=== PATIENT | male | born 1955 | race Caucasian/White ===

== ENCOUNTER 2017-04-18 02:06 | Observation (INO) | payer OTHER ==
[~2017-04-18] VITALS: Ht 182.9 cm; Wt 117.9 kg
[~2017-04-18 02:06] MED LIST: AMBIEN (MONOGRAP5 MG PO; AMLODIPINE BESY10 M1 PO; BENICAR40 MG PO; CALCIUM 600600 M1 PO; CINNAMON500 MG PO; CIPRO 500MG TA500 MG PO; CLARITIN10 MG PO; CLINDAMYCIN HY300 MG PO; CRANBERRY400 M1 PO; FISH OIL CONC1000 M1 PO; FISH OIL CONCEN1 SGL PO; HYDRODIURIL 2525 MG PO; LEVEMIR FL100 UNIT/1 SC; LEVEMIR100 U/ML SC; LEVOTHROID0.125 MG PO; LEVOTHYROXINE0.1 MG PO; LEVOTHYROXINE137 MCG PO; LORADAMED10 MG PO; LOSARTAN POTAS100 M1 PO; LOSARTAN POTASS25 MG PO; LOVASTATIN40 M1 PO; LOVASTATIN40 MG PO; MAGNESIUM OXID400 MG PO; MULTIVITAMIN1 TAB PO; MULTIVITAMINS1 EAC9 PO; NORVASC 5MG TAB5 MG PO; NOVOLOG FL100 UNIT/1 SC; NOVOLOG MI100 UNIT/1 SC; NOVOLOG100 U/ML SC; OXYCODONE5 MG PO; SAW PALMETTO450 M1 PO; VITAMIN A NA10000 IU PO; VITAMIN B6200 MG PO; VITAMIN C500 M3 PO; [UNRECOGNIZED DRUG - CODE] SC
--- NOTE | 2017-04-18 13:46 | RADIOLOGY REPORT ---
EXAMINATION: XR PORTABLE CHEST CLINICAL INFORMATION: Pacemaker placement COMPARISON: 03/13/2017 chest x-ray TECHNIQUE: Portable frontal view of the chest was obtained. FINDINGS: Hypoventilatory exam. Stable mild enlargement of the cardiac silhouette. The mediastinal silhouette is normal. No pulmonary venous congestion. A right pectoral dual-lead cardiac pacer is in place with leads projecting over the right atrium and right ventricle. The leads seem to be intact. No pneumothorax. No acute pulmonary consolidation. IMPRESSION: Cardiac pacemaker is in place. No acute pulmonary findings.
--- NOTE | 2017-04-18 14:05 | Operative Report ---
Operative/Inv Procedure Report Surgery Date: 04/18/17 Name of Procedure: Implantation of dual-chamber pacemaker, atrial and ventricular leads. Pre-Operative Diagnosis: Complete heart block Post-Operative Diagnosis: Complete heart block Estimated Blood Loss: less than 50ml Surgeon/Animal Nursery Worker: Keron Saini MD, V. Anesthesia: local monitored anesthesi Implants: Medtronic RA lead model # 4574-45, SN [id number] Medtronic RV lead model # 4074-52, SN [id number] Medtronic pacemaker, Advisa, Model # A2DR01, SN [id number] Complications: None Condition: Improved Operative Indication: Complete heart block with severe bradycardia and symptoms. Operative/Procedure Note Note: The patient is a 61-year-old male with diabetes and hypertension who presented a few weeks ago with a heart rate of 40 to his primary care physician. He was referred and workup revealed high degree AV block with periods of 2-1 and complete heart block with heart rates around 40. His echocardiogram did not show any major abnormalities and a Holter monitor documented persistent bradycardia. The patient admitted to fatigue and shortness of breath and was recommended a pacemaker. The patient was brought to the operating suite in the fasting state. He was prepped and draped in the usual manner. Full timeout took place with agreement on the patient identification, planned procedure, personnel and equipment available. 2 g of Kefzol IV were given prophylactically prior to the procedure. Local anesthesia was instilled in the right subclavian area and an incision made in this area parallel to the clavicle crossing the deltopectoral groove. The incision was carried down to the pre-muscular fascia and the deltopectoral groove was identified and dissected. A fair sized cephalic vein was found within the groove and isolated between ties. Next additional local anesthesia was instilled in the inferior part of the incision and an appropriate sized pocket made using sharp and blunt dissection and stuffed with a Kefzol-soaked sponge. Next, the vein was opened and the ventricular lead was passed through the vein into central circulation and manipulated into position in the apex of the right ventricle under fluoroscopic control. This is a passive fixation lead. Threshold measurements included voltage threshold of 0.4 V, current 0.10 mA, impedance 1072 ohms, R-wave 4.8 mV. This was considered satisfactory for an acute implant. Next through the same vein the atrial lead was passed into central circulation and manipulated into a position in the right atrial appendage under fluoroscopic control. This was also a passive fixation lead. Threshold in the atrium was 0.2 V, current 0.3 mA, impedance 603 ohms, P waves 3.8 mV. These were considered satisfactory parameters. Next the leads were sewn into place using nonabsorbable suture material around the sleeve devices on the leads sewn to the pectoralis musculature. An additional suture was placed around the vein proximally to control leakage from the vein. The vein was then tied off and hemostasis was attained. Next the sponge was removed from the pocket and the pacemaker was attached to the leads and appropriate pacing ensued. Next the pacemaker was placed in the pocket and sewn into place using a nonabsorbable suture through the suture hole of the pacemaker. Next the wound was inspected for hemostasis and found to be dry, and the wound was closed in 3 layers of absorbable suture material including a final layer of subcuticular sutures with buried knots. The patient tolerated the procedure well. There were no complications. Sponge, needle and instrument counts were correct at the end of the procedure. Postoperative EKG and chest x-ray documented good electrical and anatomical position and function of the system. The patient was removed to the recovery room awake and alert and pacing well. Discharge Disposition: PACU CC: Meron Ibarra MD
--- NOTE | 2017-04-18 16:20 | RADIOLOGY REPORT ---
EXAMINATION: XR chest INDICATION: PACEMAKER/FLUORO. VERBAL ORDER PER MD BELL. READ BACK DONE COMPARISON: Radiographs from the same date TECHNIQUE: Multiple AP spot images of the chest were submitted as part of the procedure performed by Dr. Vazquez. 462 seconds of fluoroscopy time was provided. FINDINGS/IMPRESSION: Pacemaker unit overlies the right hemithorax. Leads terminate in the region of the right atrium and right ventricular apex.
[2017-04-18 16:49] VITALS: BP 140/70
--- NOTE | 2017-04-18 17:34 | History & Physical ---
Chago SILVERIO,[facility] 04/18/17 1733: General Information and HPI MD Statement: I have seen and personally examined ANNELIESE BEASLEY and documented this H&P. The patient is a 61 year old M who presented with a patient stated chief complaint of [Bradycardia status post pace maker insertion]. Source of Information: patient, old records Exam Limitations: no limitations History of Present Illness: The patient is a 61-year-old male with diabetes, hyperlipidemia, hypothyroidism and hypertension who presented with a four-week history of lightheadedness . His symptoms started with lightheadedness about 4 weeks prior to presentation. He presented with this complaint to his primary care provider and was found to be bradycardic with a heart rate in the 40s. He denied chest pains, but did have occasional palpitations. He admitted to mild shortness of breath on exertion and fatigue but denied syncope. He was referred to club director Dr. Saini and workup revealed high degree AV block with periods of 2-1 and complete heart block with heart rates around 40. His echocardiogram on 2017 showed a normal EF of greater than 65% and no major abnormalities. A Holter monitor documented persistent bradycardia. The patient admitted to fatigue and shortness of breath and was recommended a pacemaker. He had a pacemaker placed this afternoon with no complications and was transferred to the telemetry floor for observation. Patient has been having intermittent cough productive of yellow-green sputum for the past 2 days but denies fevers, chills or malaise. He denies nausea or vomiting abdominal pain or change in bowel habits. He denies dysuria or hematuria. Allergies/Medications Allergies: Coded Allergies: Penicillins ( CHILD 04/13/17) egg (POSITIVE SKIN TEST 04/13/17) Iodinated Contrast- Oral and IV Dye (IODINATED CONTRAST MEDIA - IV DYE) ( Intermediate, VOMITING FROM PO CONTRAST DYE 04/13/17) Home Med list Amlodipine Besylate 10 MG TABLET 1 TAB PO DAILY BP (Reported) Insulin Aspart Protam & Aspart (Novolog Mix 70-30 Vial) 100 UNIT/ML (70-30) VIAL 18 UNITS SC QAM DM (Reported) Insulin Aspart, Recombinant (Novolog Flexpen) (Unknown Strength) INSULN.PEN ( Unknown Dose) SC BIDAC DM (Reported) Insulin Detemir (Levemir Flextouch) 100 UNIT/ML (3 ML) INSULN.PEN 18 UNITS SC QHS DM (Reported) Levothyroxine Sodium 137 MCG TABLET 1 TAB PO DAILY THYROID (Reported) Loratadine (Loradamed) 10 MG TABLET 1 TAB PO DAILY ALLERGIES (Reported) Losartan Potassium 100 MG TABLET 1 TAB PO DAILY BP (Reported) Lovastatin 40 MG TABLET 1 TAB PO DAILY CHOLESTEROL (Reported) with food Multiple Vitamin (Multivitamins) 1 EACH TABLET 1 TAB PO DAILY SUPPLEMENT ( Reported) [place]-3 Fatty Acids (Fish Oil Concentrate) (Unknown Strength) CAPSULE (Unknown Dose) PO QAM SUPPLEMENT (Reported) Saw Orange Fruit (Saw Orange) 450 MG CAPSULE 1 CAP PO BID SUPPLEMENT ( Reported) Observation Initial Note - I have personally examined ANNELIESE BEASLEY on 04/18/17 at 1733. The disposition of ANNELIESE BEASLEY is uncertain at this time and before a determination can be made, he requires a period of observation for the following reasons [lightheadedness and bradycardia STATUS POST PACE MAKER INSERTION] Past History Medical History Blood Transfusion Hx: No Neurological: NONE EENT: NONE Cardiovascular: hypertension, hyperlipidemia Respiratory: ALLERGIES Gastrointestinal: NONE Hepatic: NONE Renal: NONE Musculoskeletal: NONE Psychiatric: NONE Endocrine: diabetes, hypothyroidism Blood Disorders: NONE Cancer(s): TESTICULAR CA WRAPPER SORTER/Reproductive: NONE Isolation History: Standard Tetanus Vaccine: 06/07/11 Surgical History Surgical History: non-contributory Past Family/Social History Family History Relations & Conditions if any FATHER FH: diabetes mellitus FH: emphysema Gout MOTHER FH: diabetes mellitus FHx: sarcoidosis Psychosocial History Where do you live? Home Services at Home: None Smoking Status: Never Smoked Review of Systems Review of Systems Constitutional: Reports: see HPI. Denies: chills, fever, malaise, weakness. Exam & Diagnostic Data Last 24 Hrs of Vital Signs/I&O Vital Signs Date Time Temp Pulse Resp B/P B/P Pulse O2 O2 Flow FiO2 Mean Ox Delivery Rate 04/18 1649 98.0 96 20 140/70 95 Physical Exam General Appearance Alert, Oriented X3, Cooperative, No Acute Distress Skin No Rashes Skin Temp/Moisture Exam: Warm/Dry Sepsis Skin Exam (color): Normal for Ethnicity HEENT Atraumatic, PERRLA, EOMI, Mucous Membr. moist/pink Neck Supple, No JVD, No thryomegaly, +2 Carotid Pulse wo Bruit Lymphatic Cervical nl Cardiovascular Regular Rate, Normal S1, Normal S2, No Murmurs, Gallops, Rubs, Right pacemaker site clean non tender Lungs Clear to Auscultation, Normal Air Movement Abdomen Normal Bowel Sounds, Soft, No Tenderness, No Hepatospenomegaly, No Masses Neurological Normal Speech, Normal Tone, Cranial Nerves 3-12 NL Extremities No Edema Assessment/Plan Assessment: The patient is a 61-year-old male with diabetes, hyperlipidemia, hypothyroidism and hypertension who presented with a four-week history of lightheadedness . He is status post pacemaker placement today for symptomatic bradycardia and heart block. He is without lightheadedness or any symptoms at this time and will be observed and monitored on telemetry for any arrhythmias. Problem list 1. Bradycardia secondary to complete heart block status post pacemaker insertion today 2. Hypertension 3. Diabetes mellitus 4. Hypothyroidism Plan * Patient observation on telemetry for monitoring * Follow cardiology recommendations * Post pacemaker chest x-ray showed no pneumothorax * Pain control with by mouth Tylenol 650 mg every 4 hours when necessary * Continue home medications for hypertension. Losartan 100 mg daily, by mouth amlodipine 10 mg daily * Levemir 18 units at bedtime and NovoLog sliding scale 3 times a day and that bedtime for diabetes * Continue home medication of Synthroid 0.137 mg daily * DVT prophylaxis with Alps * Patient is full code As Ranked By This Provider Problem List: 1. Bradycardia 2. Heart block AV complete Core Measures/Misc (10/23) Acute Coronary Syndrome ACS Diagnosis: No Congestive Heart Failure Congestive Heart Failure Diagnosis No Cerebrovascular Accident CVA/TIA Diagnosis: No VTE (View Protocol) VTE Risk Factors Acute Medical Illness No Mechanical VTE Prophylaxis d/t N/A MechProphylax Ordered No VTE Pharm Prophylaxis d/t Surgical Contraindication Sepsis (View protocol) Sepsis Present: No Keron Saini MD 04/19/17 1554: Attending MD Review Statement Attending Statement Attending MD Statement: examined this patient, discuss w/resident/PA/ROTARY VENEER MACHINE OPERATOR, agreed w/resident/PA/ROTARY VENEER MACHINE OPERATOR Attending Assessment/Plan: Keron Saini M.D.
[2017-04-18 19:56] VITALS: BP 142/64
[2017-04-19 00:17] VITALS: BP 138/78
[2017-04-19 04:15] VITALS: BP 132/80
--- NOTE | 2017-04-19 07:20 | PN- Housestaff ---
Subjective Follow-up For: s/p pacemaker placement Tele-Events Since Last Visit: S-pacing 72-84 Ventricular paced QRS .16 Subjective: No acute events overnight. States he was not able to sleep last night. States that he has a difficult time sleeping in the hospital. No SOB or chest pain. Review of Systems Constitutional: Reports: no symptoms. Cardiovascular: Reports: no symptoms. Respiratory: Reports: no symptoms. Gastrointestinal: Reports: no symptoms. Genitourinary: Reports: no symptoms. Musculoskeletal: Reports: no symptoms. Objective Last 24 Hrs of Vital Signs/I&O Vital Signs Date Time Temp Pulse Resp B/P B/P Pulse O2 O2 Flow FiO2 Mean Ox Delivery Rate 04/19 0911 84 130/74 04/19 0910 84 130/74 04/19 0840 98.5 84 18 130/74 94 Room Air 04/19 0415 98.1 80 20 132/80 93 Room Air 04/19 0017 98.8 86 20 138/78 93 Room Air 04/18 1956 98.4 90 20 142/64 94 Room Air Intake & Output 04/19 1600 04/19 0800 04/19 0000 Intake Total 260 240 Output Total 750 600 Balance -490 -360 Intake, Oral 260 240 Output, Urine 750 600 Patient 260 lb Weight Physical Exam General Appearance: Alert, Oriented X3, Cooperative HEENT: PERRLA, EOMI Cardiovascular: Regular Rate, Normal S1, Normal S2 Lungs: Clear to Auscultation, Normal Air Movement Abdomen: Normal Bowel Sounds, Soft, No Tenderness Vascular: 2+ radial pulses Current Medications: Current Medications Sig/Mandy Start time Last Medication Dose Route Stop Time Status Admin Acetaminophen 650 MG Q4P PRN 04/18 1730 DCD PO Amlodipine Besylate 10 MG DAILY 04/19 1000 DCD 04/19 PO 0911 Atorvastatin Calcium 10 MG 1700 04/18 1730 DCD 04/18 PO 1820 Cefazolin Sodium 2,000 MG ONCE 04/18 0000 DC IV 04/18 2359 Insulin Aspart 0 TIDAC 04/19 0800 DCD 04/19 SC 1204 Insulin Aspart 0 AT BEDTIME 04/18 2200 DCD SC Insulin Detemir 18 UNITS AT BEDTIME 04/18 2200 DCD 04/18 SC 2143 Levothyroxine Sodium 0.137 MG DAILY AC 04/19 0700 DCD 04/19 PO 0616 Loratadine 10 MG DAILY 04/19 1000 DCD 04/19 PO 0911 Losartan Potassium 100 MG DAILY 04/19 1000 DCD 04/19 PO 0910 Melatonin 5 MG ONCE ONE 04/19 0330 DC 04/19 PO 04/19 033 0330 Multivitamins 1 TAB DAILY 04/19 1000 DCD 04/19 Therapeutic PO 0911 Last 24 Hrs of Lab/Pradeep Results Last 24 Hrs of Labs/Mics: Laboratory Tests 04/19/17 0700: Anion Gap 11, Estimated GFR 51 L, BUN/Creatinine Ratio 18.6 Assessment/Plan Assessment: A: 61-year-old male with a pmhx of diabetes, hyperlipidemia, hypothyroidism and hypertension who presented with a four-week history of lightheadedness found to have symptomatic bradycardia/heart block and is currently s/p pacemaker from yesterday. P: #Symptomatic bradycardia secondary to complete heart block status post pacemaker insertion today * patient s/p pacemaker yesterday * cleared by cardiology for discharge with follow up in 1 week #diabetes -cont novolog sliding scale + levemir #Chronic medical problems Cont meds for htn, hayfever, hld, insomnia -cont multivitamins, losartan, amlodipine, loratidine, melatonin, atorvastatin #DVT prophylaxis with Alps #FULL CODE Problem List: 1. Heart block AV complete 2. Pacemaker Pain Ratin Pain Location: none Pain Goal: Pain 4 or less Pain Plan: pain pathway Tomorrow's Labs & Rationales: none
[2017-04-19 08:40] VITALS: BP 130/74
[2017-04-19 09:11] VITALS: BP 130/74
--- NOTE | 2017-04-19 09:20 | PN- Cardiology ---
Subjective Subjective: The patient is feeling well. He is pacing well overnight. Pacer check this morning by Rep. was fine. He is not having any significant pain at the insertion site. Vital signs are normal Objective Vital Signs and I&Os Vital Signs Date Time Temp Pulse Resp B/P B/P Pulse O2 O2 Flow FiO2 Mean Ox Delivery Rate 04/19 0911 84 130/74 04/19 0910 84 130/74 04/19 0840 98.5 84 18 130/74 94 Room Air 04/19 0415 98.1 80 20 132/80 93 Room Air 04/19 0017 98.8 86 20 138/78 93 Room Air 04/18 1956 98.4 90 20 142/64 94 Room Air 04/18 1649 98.0 96 20 140/70 95 Intake & Output 04/19 1600 04/19 0800 04/19 0000 04/18 1600 04/18 0800 04/18 0000 Intake Total 260 240 Output Total 750 600 Balance -490 -360 Intake, Oral 260 240 Output, Urine 750 600 Patient 260 lb Weight Physical Exam: HEENT exam normal Chest clear Heart regular rhythm heart rate 90 Pacer site clean and dry, no hematoma Assessment/Plan Assessment/Plan The patient is stable post pacemaker insertion. He can be discharged home. He should keep the wound site dry for 5 days and leave the Steri-Strips on. He does not need a sling on discharge. I will see him in the office next week for postop check. Continue telemetry? No
--- NOTE | 2017-04-19 13:12 | Patient Discharge Instructions ---
Discharge Instructions General Discharge Information Special Instructions: Please follow up with Dr. Saini next week. Please keep the wound site dry for 5 days and to leave the steri-strips on. Acute Coronary Syndrome Inclusion Criteria At DC or during hospital stay patient has or had the following: ACS DIAGNOSIS No Discharge Core Measures Meds if any: Prescribed or Continued at Discharge Meds if any: NOT Prescribed or Continued at Discharge Congestive Heart Failure Inclusion Criteria At DC or during hospital stay patient has or had the following: CHF DIAGNOSIS No Discharge Core Measures Meds if any: Prescribed or Continued at Discharge Meds if any: NOT Prescribed or Continued at Discharge Cerebrovascular accident Inclusion Criteria At DC or during hospital stay patient has or had the following: CVA/TIA Diagnosis No Discharge Core Measures Meds if any: Prescribed or Continued at Discharge Meds if any: NOT Prescribed or Continued at Discharge Venous thromboembolism Inclusion Criteria VTE Diagnosis No VTE Type NONE VTE Confirmed by (Test) NONE Discharge Core Measures - Per Current guidelines, there needs to be overlap - treatment for the first 5 days of Warfarin therapy. - If discharged on Warfarin prior to 5 days of - overlap therapy, the patient will need to be - assessed for post discharge needs including - *Post discharge parental anticoagulation - *Warfarin and/or parental anticoagulation education - *Follow up date to check INR post discharge At least 5 days overlap therapy as Inpatient No Meds if any: Prescribed or Continued at Discharge Note: Overlap Therapy is Warfarin and Anticoagulant Meds if any: NOT Prescribed or Continued at Discharge
== END 2017-04-19 13:45 ==
LOC: STS 02:06 → PACUH 13:10 → ENRESERV 15:21 → 1NO 15:54 → ENPENDDIS 04-19 13:23 → ENTRNSPT 04-19 13:36 → EDTRNSPT 04-19 13:38 → EDTRNSPTSTS 04-19 13:38 → 1NO 04-19 13:45 → CMPTRNSPT 04-19 13:59
DX: I44.2 Atrioventricular block, complete (principal); I10 Essential (primary) hypertension; E11.9 Type 2 diabetes mellitus without complications; Z79.4 Long term (current) use of insulin; E03.9 Hypothyroidism, unspecified; E78.5 Hyperlipidemia, unspecified; Z85.47 Personal history of malignant neoplasm of testis
CPT/HCPCS: 6020; 36415; 71045; 82436; 93005; 93010; 96374; C1785; C1898; G0378; J0690; J3490